=== PATIENT | male | born 1935 | race Caucasian/White ===

== ENCOUNTER 2020-07-07 17:25 | Inpatient (IN) | payer MEDICARE, OTHER ==
[2020-07-07] MEDS ORDERED: Furosemide 40 MG/4 ML VIAL ONE (18:03)
--- NOTE | 2020-07-07 18:39 | PDOC.HHP ---
Hospitalist HPI - History of Present Illness History of Present Illness: 84-year-old male complaining of shortness of breath over the past 2 to 3 weeks. He was seen at [facility] today where he left AMA earlier today after having a troponin that was 3 and an x-ray that I have reviewed myself that appears to have fluid overload and some congestion. Does not appear to be a coronavirus type x-ray but is consistent with fluid overload. He was sent to this hospital because his GFR is 17 and they cannot rule out PE at that hospital. His BNP was 3000 and his Trope was 3 at that time patient is a poor historian and history is mostly obtained from the chart LEFT AMA THIS AM. RETURNED AND DECIDED TO BE SEEN. LOVENOX GIVEN. ORIGINAL C/O SOB. AFEBRILE VSS 89RA, NOW ON 2L D-DIMER 0.77 TROP 2.922 CKMB 13.3 BUN 33, CREATININE 2.37 - UNABLE TO COMPLETE CTA BNP 3036 DENIES CHF. ED Course: VITAL SIGNS Sally Jul 07, 2020 17:30 MELANIE Garcia Daylee BP: 123/80, Pulse: 98, Resp: 28, Temp: 98.9 (Oral), O2 sat: 94 on (2L Oxygen), Time: 07/07/2020 17:30. VITAL SIGNS [facility] Jul 07, 2020 17:37 MELANIE Garcia Daylee Resp: 30, O2 sat: 98 on (3L Oxygen), Time: 07/07/2020 17:37. Sally Jul 07, 2020 18:34 Drug Name Dose Ordered Route Status Time furosemide injection 40 mg IV Push Given 18:07 07/07/2020 Hospitalist ROS - Review of Systems All other systems reviewed; all pertinent +/- noted in HPI/Subj - Medication Medications: Home medications: Allergies: NKDA Hospitalist History - Past Medical History Source: patient, RN notes reviewed Other Medical History: MEDICAL HISTORY [facility] Jul 07, 2020 17:31 MELANIE Garcia Daylee Notes: poor historian pt unable to tell me about his medical hx although he does take prescription meds. MALE SURGICAL HISTORY [facility] Jul 07, 2020 17:31 MELANIE Garcia Daylee Patient's surgical history not available at time of evaluation, poor historian. PSYCHIATRIC HISTORY [facility] Jul 07, 2020 17:31 MELANIE Garcia Daylee Psychiatric history includes, anxiety. SOCIAL HISTORY [facility] Jul 07, 2020 17:31 MELANIE Garcia, [place] Patient denies alcohol use, Patient denies drug use, Patient has no smoking history. FAMILY HISTORY:
[2020-07-07 19:06] LABS: CKMB 12.3 ng/mL (0-6.6)
[2020-07-07] MEDS ORDERED: Heparin 10,000 UNITS/ 10 ML VIAL SLOW IVP SCH ×2 (19:15→20:00)
[2020-07-07] MEDS ORDERED: Heparin 25,000 units/D5W 500 ML IVPB SCH ×2 (19:15→20:30)
[2020-07-07] MEDS ORDERED: hydrALAZINE 20 MG/ML VIAL SLOW IVP PRN ×2 (19:17→20:17)
[2020-07-07] MEDS ORDERED: Calcium Carbonate 500 MG ChewTAB PO PRN ×2 (19:17→20:18)
[2020-07-07] MEDS ORDERED: Ondansetron ODT 4 MG TAB PO PRN ×2 (19:17→20:13)
[2020-07-07] MEDS ORDERED: Acetaminophen 325 MG TAB PO PRN ×2 (19:17→20:17)
[2020-07-07] MEDS ORDERED: Acetaminophen 650 MG Suppository PR PRN ×2 (19:17→20:18)
[2020-07-07] MEDS ORDERED: Senokot S 8.6-50 MG TAB PO PRN ×2 (19:17→20:13)
[2020-07-07] MEDS ORDERED: Ondansetron PF 4 MG/2 ML Vial IVP PRN ×2 (19:17→20:13)
[2020-07-07] MEDS ORDERED: Nicotine 14 MG PATCH TD SCH (19:30)
[2020-07-07 19:43] LABS: Hemoglobin 12.8 g/dL (14.0-18.0); Platelet Count 137 thou/uL (130-400)
[2020-07-07 19:49] LABS: INR-International Normal Ratio 1.2; PTT 39.8 sec (22.9-36.1)
[2020-07-07] MEDS ORDERED: Aspirin 325 MG TAB PO SCH ×2 (20:00→20:30)
[2020-07-07] MEDS ORDERED: Benzonatate 100 MG CAP PO PRN (20:10)
[2020-07-07] MEDS ORDERED: Guaifenesin DM 100-10/5 ML UDCUP PO PRN (20:10)
[2020-07-07] MEDS ORDERED: Sodium Chloride 0.9% (PF) 10 ML VIAL FS PRN (20:23)
[2020-07-07 20:30] LABS: Troponin I 2.544 ng/mL (< 0.028)
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
[2020-07-07] MEDS ORDERED: Metoprolol Tartrate 25 MG TAB PO SCH (21:00)
[2020-07-07] MEDS ORDERED: Atorvastatin Calcium 40 MG TAB PO SCH (21:00)
[2020-07-07] MEDS: Metoprolol Tartrate 25 MG TAB PO SCH (21:57)
[2020-07-07] MEDS: Nicotine 14 MG PATCH TD SCH (21:57)
[2020-07-07] MEDS: Atorvastatin Calcium 40 MG TAB PO SCH (21:57)
[2020-07-07] MEDS ORDERED: Nitroglycerin 2% Ointment 1 INCH/1 GM Packet TOP SCH (22:00)
--- NOTE | 2020-07-07 22:16 | ULT ---
ULTRASOUND DOPPLER DUPLEX VENOUS BILATERAL LOWER EXTREMITIES: DATE: 07/07/2020 HISTORY: Bilateral lower extremity edema in 84-year-old male TECHNIQUE: Grayscale, color-flow, and spectral analysis, of major veins of bilateral lower extremities. FINDINGS: There is demonstration of blood flow with normal compressibility, of the bilateral common femoral, pr ofunda femoral, greater saphenous, femoral, popliteal, and posterior tibial, veins. IMPRESSION: Negative. No deep venous thrombosis of bilateral lower extremities.
--- NOTE | 2020-07-07 22:21 | ULT ---
ULTRASOUND RETROPERITONEUM COMPLETE: (RENAL) DATE: 07/07/2020 HISTORY: 84-year-old male with acute kidney injury FINDINGS: Right kidney: 7 x 3.5 x 4 cm. Left kidney: 8 x 4 x 3.5 cm. No hydronephrosis. 2.5 cm cyst at left renal lower pole. Urinary bladder volume 450 mL. Bilateral ureteral jets visualized. IMPRESSION: 1) bilateral renal atrophy. 2) left renal cyst. 3) urinary bladder distention
[2020-07-07] MEDS: Nitroglycerin 2% Ointment 1 INCH/1 GM Packet TOP SCH (22:24)
[2020-07-08] MEDS: Nitroglycerin 2% Ointment 1 INCH/1 GM Packet TOP SCH ×3 (04:40→20:53)
[2020-07-08 04:55] LABS: PTT 146.7 sec (22.9-36.1)
[2020-07-08] MEDS ORDERED: Furosemide 40 MG/4 ML VIAL SLOW IVP SCH (06:00)
[2020-07-08] MEDS: Furosemide 40 MG/4 ML VIAL SLOW IVP SCH ×2 (06:06→14:31)
[2020-07-08] MEDS: Pantoprazole 40 MG VIAL IVP SCH (08:23)
[2020-07-08] MEDS: Aspirin Chewable 81 MG TAB PO SCH (08:23)
[2020-07-08] MEDS: Metoprolol Tartrate 25 MG TAB PO SCH (08:23)
[2020-07-08 08:37] LABS: Albumin 3.8 g/dL (3.4-4.8); Anion Gap 17 mmol/L (10-20); BUN (Urea Nitrogen) 34 mg/dL (8.4-25.7); BUN/Creatinine Ratio 14.85; Calc. Creatinine Clearance 23 mL/min (70-130); Calcium 8.3 mg/dL (7.8-10.44); Carbon Dioxide 18 mmol/L (23-31); Chloride 109 mmol/L (98-107); Estimated GFR-MDRD 27; Glucose 95 mg/dL (83-110); Phosphorus 3.1 mg/dL (2.3-4.7); Potassium 3.5 mmol/L (3.5-5.1); Sodium 140 mmol/L (136-145)
[2020-07-08] MEDS ORDERED: Enoxaparin Sodium 40 MG/0.4 ML SYRINGE SC SCH (09:00)
[2020-07-08] MEDS ORDERED: Aspirin Chewable 81 MG TAB PO SCH (09:00)
[2020-07-08] MEDS: Enoxaparin Sodium 80 MG/0.8 ML SYRINGE SC SCH (09:27)
[2020-07-08] MEDS ORDERED: Potassium Chloride 20 MEQ TAB PO SCH (09:30)
[2020-07-08 11:09] LABS: Bacteria/HPF None Seen HPF (None Seen); RBC/HPF 21-50 HPF (0-3); Squamous Epithelial None Seen HPF (0-3); WBC/HPF None Seen HPF (0-3)
[2020-07-08 11:14] LABS: Bilirubin Negative (Negative); Blood, Urine Large (Negative); Glucose, Urine (Dipstick) Negative (Negative); Ketone, Urine Negative (Negative); Leukocyte Negative (Negative); Nitrite Negative (Negative); Protein, Urine (Dipstick) Negative (Neg-Trace); Specific Gravity, Urine 1.015 (1.005-1.030); Urobilinogen 0.2 mg/dL (Less than 2)
[2020-07-08 11:21] LABS: Clarity Hazy (Clear)
[2020-07-08 11:22] LABS: Urine Culture Reflex No No
[2020-07-08 11:24] VITALS: BMI 22.0
[2020-07-08 11:28] LABS: Creatinine, Urine 22.65 mg/dL (63-166)
[2020-07-08 12:42] LABS: SARS-CoV-2 MS2 Positive; SARS-CoV-2 N Gene Negative; SARS-CoV-2 S Gene Negative; SARS-CoV-2 by NAA Not Detected (NotDetected); SARS-CoV-2 orf1ab Negative
[2020-07-08] MEDS ORDERED: Sodium Bicarbonate Tab 325 MG TAB PO SCH (12:45)
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
--- NOTE | 2020-07-08 16:21 | PDOC.HOSPP ---
- Subjective Encounter Date: 07/08/20 Subjective: Patient says he is doing okay. Denies any pain or any current needs. - Objective Vital Signs & Weight: Vital Signs (12 hours) Temp Pulse Pulse Pulse Resp BP BP 07/08/20 15:35 97.6 F 81 16 07/08/20 12:00 07/08/20 11:41 98 119/73 07/08/20 11:07 98.0 F 97 18 07/08/20 10:11 87 79 92/55 L 104/59 L 07/08/20 08:30 07/08/20 08:19 97.5 F L 79 30 H 07/08/20 07:40 07/08/20 04:24 97.7 F 73 18 BP Pulse Ox Pulse Ox Pulse Ox 07/08/20 15:35 94/57 L 96 07/08/20 12:00 97 07/08/20 11:41 95 07/08/20 11:07 119/73 97 07/08/20 10:11 99 93 L 07/08/20 08:30 96 07/08/20 08:19 104/65 96 07/08/20 07:40 98 07/08/20 04:24 110/67 97 Weight Admit Weight 154 lb 15.759 oz Weight 153 lb 8 oz I&O: 07/07/20 07/08/20 07/09/20 06:59 06:59 06:59 Intake Total 680 Output Total 825 Balance -145 Result Diagrams: 07/07/20 19:29 07/08/20 08:07 Hospitalist ROS - Medication Medications: Active Medications Generic Name Dose Route Start Last Admin Trade Name Lg PRN Reason Stop Dose Admin Aspirin 81 mg 07/08/20 09:00 07/08/20 08:23 Aspirin Chewable PO 81 mg DAILY AMADO Administration Atorvastatin Calcium 40 mg 07/07/20 21:00 07/07/20 21:57 Lipitor PO 40 mg HS AMADO Administration Enoxaparin Sodium 70 mg 07/08/20 09:00 07/08/20 09:27 Lovenox SC 70 mg 0900 AMADO Administration Furosemide 40 mg 07/08/20 06:00 07/08/20 14:31 Lasix SLOW IVP 40 mg 0600,1400 AMADO Administration Nicotine 14 mg 07/07/20 21:00 07/07/20 21:57 Nicoderm Patch TD 14 mg 2099 AMADO Administration Nitroglycerin 0.5 inch 07/07/20 21:00 07/08/20 13:18 Nitro-Bid 2% Ointment TOP 0.5 inch 0500,1300,2100 AMADO Administration Pantoprazole Sodium 40 mg 07/08/20 09:00 07/08/20 08:23 Protonix IVP 40 mg DAILY AMADO Administration Pneumococcal 13-Valent Conj Vacc 0.5 ml 07/09/20 09:00 07/08/20 11:53 Prevnar IM 07/09/20 09:01 Not Given .ONCE ONE Sodium Chloride 10 ml 07/07/20 21:00 07/08/20 08:29 Flush - Normal Saline IVF 10 ml Q12HR AMADO Administration Sodium Chloride 10 ml 07/07/20 20:23 07/08/20 08:23 Normal Saline Pf FS 10 ml PRN PRN Administration RECONSTITUTION - Exam General Appearance: NAD, awake alert Heart: RRR, no murmur, no gallops, no rubs, normal peripheral pulses Respiratory: CTAB, no wheezes, no rales, no ronchi, normal chest expansion, no tachypnea, normal percussion Gastrointestinal: soft, non-tender, non-distended, normal bowel sounds, no palpable masses, no hepatomegaly, no splenomegaly, no bruit Extremities: no cyanosis, no clubbing, no edema Skin: normal turgor, no lesions, no rashes Neurological: cranial nerve grossly intact, normal sensation to touch, no weakness, no focal deficits, no new deficit Musculoskeletal: generalized weakness Psychiatric: normal affect, not oriented Hosp A/P (1) Acute on chronic systolic heart failure Code(s): I50.23 - ACUTE ON CHRONIC SYSTOLIC (CONGESTIVE) HEART FAILURE Status : Acute (2) Hypertension Code(s): I10 - ESSENTIAL (PRIMARY) HYPERTENSION Status: Acute (3) Hyperlipidemia Code(s): E78.5 - HYPERLIPIDEMIA, UNSPECIFIED Status: Acute (4) COPD (chronic obstructive pulmonary disease) Status: Acute (5) Myocardial infarction Code(s): I21.9 - ACUTE MYOCARDIAL INFARCTION, UNSPECIFIED Status: Acute Qualifiers: Myocardial infarction type: type 2 Qualified Code(s): I21.A1 - Myocardial infarction type 2 (6) Coronary artery disease Code(s): I25.10 - ATHSCL HEART DISEASE OF [place] CORONARY ARTERY W/O ANG PCTRS Status: Acute (7) Peripheral vascular disease Code(s): I73.9 - PERIPHERAL VASCULAR DISEASE, UNSPECIFIED Status: Acute (8) CKD (chronic kidney disease), stage IV Code(s): N18.4 - CHRONIC KIDNEY DISEASE, STAGE 4 (SEVERE) Status: Acute - Plan Acute on chronic systolic congestive heart failure: Patient certainly has evidence of decompensated heart failure however the systolic nature is based on the fact that he has a defibrillator likely representing a significantly reduced ejection fraction. He is currently receiving diuretics. No JEANIE inhibitor's due to the renal function. Cardiology consult appreciated. Discussed with Dr. Armijo. Attempting to get additional information via records. NSTEMI type II: Secondary to demand ischemia from decompensated heart failure. Exacerbated by his advanced age and renal function. Continue aspirin and statin therapy. He is not a candidate for cath at this point given his renal function. Kidney disease: Likely chronic stage IV renal disease. Patient's ultrasound of the kidneys show significant medical renal disease. Very likely that this is chronic in nature. It is possible there is a urinary retention component. Patient has had some relatively high volumes noted in the bladder on scan but he is able to void adequately with modest residuals. Nonsustained V. tach: Based on rhythm strip. Has a defibrillator in place. Hypothyroidism: Continue home dose of levothyroxine. Coronary artery disease: Working on obtaining more information regarding this history.
[2020-07-08] MEDS: Carvedilol 3.125 MG TAB PO SCH (17:37)
[2020-07-08] MEDS: Atorvastatin Calcium 40 MG TAB PO SCH (20:54)
[2020-07-08] MEDS: Nicotine 14 MG PATCH TD SCH (20:54)
[2020-07-08] MEDS: Sodium Bicarbonate Tab 325 MG TAB PO SCH (20:54)
[2020-07-08] MEDS ORDERED: Rosuvastatin 10 MG TAB PO SCH (21:00)
[2020-07-09 04:47] LABS: Anion Gap 15 mmol/L (10-20); BUN (Urea Nitrogen) 42 mg/dL (8.4-25.7); Calc. Creatinine Clearance 22 mL/min (70-130); Calcium 8.2 mg/dL (7.8-10.44); Carbon Dioxide 20 mmol/L (23-31); Cardiac Risk 3.8 (Less than 4.5); Chloride 108 mmol/L (98-107); Cholesterol 107 mg/dl (< 200 Desired); Estimated GFR-MDRD 26; Glucose 95 mg/dL (83-110); HDL Cholesterol 28 mg/dL (>60 Neg Risk); LDL Cholesterol, Calculated 52 mg/dL; Potassium 3.4 mmol/L (3.5-5.1); Sodium 140 mmol/L (136-145); Triglycerides 137 mg/dL (Less than 150)
[2020-07-09] MEDS: Furosemide 40 MG/4 ML VIAL SLOW IVP SCH (06:41)
[2020-07-09] MEDS: Nitroglycerin 2% Ointment 1 INCH/1 GM Packet TOP SCH ×3 (06:41→20:31)
[2020-07-09] MEDS: Aspirin Chewable 81 MG TAB PO SCH (08:37)
[2020-07-09] MEDS: Carvedilol 3.125 MG TAB PO SCH ×2 (08:37→17:18)
[2020-07-09] MEDS: Sodium Bicarbonate Tab 325 MG TAB PO SCH (08:37)
[2020-07-09] MEDS: Enoxaparin Sodium 80 MG/0.8 ML SYRINGE SC SCH (08:38)
[2020-07-09] MEDS: Pantoprazole 40 MG VIAL IVP SCH (08:38)
[2020-07-09] MEDS: Levothyroxine Sodium 50 MCG TAB PO SCH (08:41)
[2020-07-09] MEDS ORDERED: Prevnar 13-Val Conj/PF 0.5 ML SYRINGE IM ONE (09:00)
[2020-07-09] MEDS ORDERED: Spironolactone 25 MG TAB PO SCH (09:00)
--- NOTE | 2020-07-09 11:52 | PRG ---
DATE OF SERVICE: 07/09/2020 SERVICE: Nephrology. SUBJECTIVE: An 84-year-old male with known history of chronic CHF, cardiomyopathy status post AICD placement, presumed chronic kidney disease, admitted due to worsening shortness of breath especially with exertion. Nephrology is seeing the patient for renal insufficiency with possible acute kidney injury. The patient reports feeling better. Leg swelling on admission has resolved. No fever, nausea, vomiting, or chest pain. OBJECTIVE: VITAL SIGNS: Temperature 97.2, pulse 63, respiratory rate 17, SpO2 95% on room air, blood pressure is 119/65. I and O in the last 24 hours showed total intake of 1118 with output of 1775. GENERAL: Elderly male, in no obvious distress. Afebrile. Anicteric. Acyanotic. HEENT: Normocephalic, atraumatic. Oral mucosa is moist. NECK: Supple with no obvious JVD. CARDIOVASCULAR: Regular rhythm and rate with normal heart sounds 1 and 2. RESPIRATORY: Fair air entry bilaterally with no obvious crackle or rhonchi or use of accessory muscles. Few transmitted breath sounds is appreciated. GI: Full, soft, nontender, nondistended with normal bowel sounds. EXTREMITIES: Grossly normal looking, atraumatic with no edema or erythema. 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 The patient however is very hard of hearing even with his hearing aid. Cranial nerves 2 through 12 are grossly intact. DIAGNOSTIC DATA: Chemistry today showed sodium 140, potassium 3.4, chloride 108, CO2 of 20, BUN 42, creatinine 2.39, glucose 95, calcium 8.2. Urinalysis performed yesterday showed hazy urine with pH of 8.0, specific gravity of 1.015, negative protein, glucose, ketone, nitrite, bilirubin, and leukocyte esterase. Blood is large with microscopy showing 21-50 rbcs and no wbcs, squamous cells or bacteria. Urine electrolytes showed creatinine 22.65, sodium 125, urea nitrogen 157 with fractional excretion of 42. Urine total protein is 17 mg/dL. IMAGING: Echocardiogram performed yesterday showed significantly depressed systolic function with EF of 15% to 20%. ASSESSMENT: 1. Chronic kidney disease with possible reversible component. Creatinine has been stable since admission from 2.29 to 2.39. Baseline creatinine is unknown. Ultrasound showed atrophic kidneys. 2. History of a chronic congestive heart failure with automatic implantable cardioverter defibrillator placement is suggestive of possible chronic kidney disease in line with atrophic kidneys. Most likely etiology is that of cardiorenal or ischemia. The patient is currently euvolemic. There is no evidence of cardiac decompensation at this point. There is no edema or respiratory distress. The patient also is lying flat with no shortness and currently on room air. 3. Ischemic cardiomyopathy with ejection fraction of 15% to 20%, status post automatic implantable cardioverter defibrillator placement. 4. [id number] systolic heart failure: Markedly improved with diuretics. 5. Hypothyroidism, on supplementation. 6. Acute non-ST elevation myocardial infarction. PLAN: 1. We will hold Lasix therapy today as the patient is euvolemic and creatinine is trending up. 2. We will however start spironolactone in view of markedly depressed EF and hypokalemia. 3. We will also check magnesium level and replete that if indicated. 4. Further treatment to follow depending on hospital course. 5. Still awaiting medical records from barrel filler and primary care physician. Job ID: [id number]
--- NOTE | 2020-07-09 12:52 | PRG ---
DATE OF SERVICE: SUBJECTIVE: Mr. Diana appears comfortable now. The nurse said when his was not here, he became very confused, tried to pull his IVs out, refused medicines, but when she is here, he is much more compliant. He is not having trouble breathing. OBJECTIVE: VITAL SIGNS: Blood pressure is 98/63, pulse 70 and it is atrial paced. LUNGS: Clear. CARDIAC: Normal S1, normal S2. ABDOMEN: Soft, nontender. EXTREMITIES: There is no edema. We did receive the medication list from home. He was only taking enalapril 5 mg a day, Lasix 20 mg a day, levothyroxine. I suspect he is off the other medicines due to hypotension. ASSESSMENT: 1. Congestive heart failure, systolic, acute on chronic, improved. 2. Non-ST elevation infarction. 3. Stage 4 renal failure. 4. Defibrillator, end of life, elective replacement indicator. PLAN: 1. We will arrange to have the defibrillator changed. 2. Resume very low-dose JEANIE inhibitors in view of renal failure. 3. Hopefully home soon. He is becoming very disoriented here. Apparently, he has undergone cardiac catheterization. Medical therapy is advised, but we do not have all the details yet. We will reduce furosemide effect if Lasix is on hold presently. Job ID: [id number]
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
[2020-07-09 19:21] LABS: Hemoglobin 11.9 g/dL (14.0-18.0); Platelet Count 156 thou/uL (130-400)
[2020-07-09] MEDS: Atorvastatin Calcium 40 MG TAB PO SCH (20:31)
[2020-07-09] MEDS: Mirtazapine 30 MG TAB PO SCH (20:31)
[2020-07-09] MEDS: Temazepam 15 MG CAP PO SCH (20:31)
[2020-07-09] MEDS: Nicotine 14 MG PATCH TD SCH (20:32)
[2020-07-10 05:19] LABS: Anion Gap 15 mmol/L (10-20); BUN (Urea Nitrogen) 46 mg/dL (8.4-25.7); Calc. Creatinine Clearance 21 mL/min (70-130); Calcium 7.9 mg/dL (7.8-10.44); Carbon Dioxide 21 mmol/L (23-31); Chloride 103 mmol/L (98-107); Estimated GFR-MDRD 24; Glucose 113 mg/dL (83-110); Potassium 3.2 mmol/L (3.5-5.1); Sodium 136 mmol/L (136-145)
[2020-07-10] MEDS: Nitroglycerin 2% Ointment 1 INCH/1 GM Packet TOP SCH ×3 (05:36→21:20)
[2020-07-10] MEDS ORDERED: Potassium Chloride 20 MEQ TAB PO SCH (08:15)
[2020-07-10] MEDS: Carvedilol 3.125 MG TAB PO SCH ×2 (09:41→17:49)
[2020-07-10] MEDS: Aspirin Chewable 81 MG TAB PO SCH (09:41)
[2020-07-10] MEDS: Enoxaparin Sodium 80 MG/0.8 ML SYRINGE SC SCH (09:42)
[2020-07-10] MEDS: Levothyroxine Sodium 50 MCG TAB PO SCH (09:42)
[2020-07-10] MEDS ORDERED: Sodium Bicarbonate Tab 325 MG TAB PO SCH ×2 (13:15→21:00)
[2020-07-10] MEDS ORDERED: Spironolactone 25 MG TAB PO SCH (13:15)
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
[2020-07-10] MEDS: Temazepam 15 MG CAP PO SCH (21:21)
[2020-07-10] MEDS: Nicotine 14 MG PATCH TD SCH (21:21)
[2020-07-10] MEDS: Mirtazapine 30 MG TAB PO SCH (21:21)
[2020-07-10] MEDS: Atorvastatin Calcium 40 MG TAB PO SCH (21:21)
[2020-07-11] MEDS: Nitroglycerin 2% Ointment 1 INCH/1 GM Packet TOP SCH ×3 (05:37→20:57)
[2020-07-11 06:27] LABS: Anion Gap 14 mmol/L (10-20); BUN (Urea Nitrogen) 44 mg/dL (8.4-25.7); Calc. Creatinine Clearance 21 mL/min (70-130); Calcium 7.9 mg/dL (7.8-10.44); Carbon Dioxide 20 mmol/L (23-31); Chloride 107 mmol/L (98-107); Estimated GFR-MDRD 25; Glucose 97 mg/dL (83-110); Potassium 4.3 mmol/L (3.5-5.1); Sodium 137 mmol/L (136-145)
[2020-07-11] MEDS: Levothyroxine Sodium 50 MCG TAB PO SCH (08:28)
[2020-07-11] MEDS: Aspirin Chewable 81 MG TAB PO SCH (08:29)
[2020-07-11] MEDS: Carvedilol 3.125 MG TAB PO SCH ×2 (08:29→18:35)
--- NOTE | 2020-07-11 10:02 | PDOC.NEPPN ---
- Subjective Encounter Date: 07/11/20 Subjective: 84 y/o male admitted due to worsening SOB and leg edema. Seen in follow up for LIAM on CKD. Feeling better. No SOB. wants to go home. - Objective Vital Signs & Weight: Vital Signs (12 hours) Temp Pulse Resp BP Pulse Ox 07/11/20 07:46 96 07/11/20 04:29 95 07/11/20 04:00 98.3 F 88 18 102/59 L 93 L 07/11/20 00:00 104/58 L Weight Admit Weight 154 lb 15.759 oz Weight 155 lb 6.4 oz I&O: 07/10/20 07/11/20 07/12/20 06:59 06:59 06:59 Intake Total 660 480 Output Total 350 666 Balance 310 -186 Result Diagrams: 07/09/20 18:57 07/11/20 05:28 Nephrology ROS - Medication Medications: Active Medications Generic Name Dose Route Start Last Admin Trade Name Freq PRN Reason Stop Dose Admin Acetaminophen 650 mg 07/07/20 20:17 07/08/20 21:28 Tylenol PO 650 mg Q4H PRN Administration Headache/Fever/Mild Pain (1-3) Aspirin 81 mg 07/08/20 09:00 07/11/20 08:29 Aspirin Chewable PO 81 mg DAILY AMADO Administration Atorvastatin Calcium 40 mg 07/07/20 21:00 07/10/20 21:21 Lipitor PO 40 mg HS AMADO Administration Carvedilol 3.125 mg 07/08/20 17:00 07/11/20 08:29 Coreg PO 3.125 mg BID-WM AMADO Administration Levothyroxine Sodium 50 mcg 07/09/20 09:00 07/11/20 08:28 Synthroid PO 50 mcg DAILY AMADO Administration Mirtazapine 30 mg 07/09/20 21:00 07/10/20 21:21 Remeron PO 30 mg HS AMADO Administration Nicotine 14 mg 07/07/20 21:00 07/10/20 21:21 Nicoderm Patch TD 14 mg 2100 AMADO Administration Nitroglycerin 0.5 inch 07/07/20 21:00 07/11/20 05:37 Nitro-Bid 2% Ointment TOP Not Given 0500,1300,2100 AMADO Pantoprazole Sodium 40 mg 07/10/20 09:00 07/11/20 08:28 Protonix PO 40 mg DAILY AMADO Administration Sodium Chloride 10 ml 07/07/20 21:00 07/11/20 08:29 Flush - Normal Saline IVF 10 ml Q12HR AMADO Administration Sodium Chloride 10 ml 07/07/20 20:23 07/08/20 08:23 Normal Saline Pf FS 10 ml PRN PRN Administration RECONSTITUTION Temazepam 15 mg 07/09/20 21:00 07/10/20 21:21 Restoril PO 15 mg HS AMADO Administration - Exam General Appearance: awake alert Eye: anicteric sclera Neck: supple, symmetric, no JVD Respiratory: CTAB Cardiovascular: RRR, murmur present Gastrointestinal: soft, non-tender, non-distended, normal bowel sounds Extremities: no cyanosis, no clubbing, no edema Neurological: CN's grossly intact Neurological - other findings: ambulant. hard of hearing. PSYCH: normal affect, A&O x 3 Psychiatric - other findings: some memory lapses noted Nephrology Results - Labs Result Diagrams: 07/09/20 18:57 07/11/20 05:28 Lab results: Hgb 11.9 g/dL (14.0-18.0) L 07/09/20 18:57 Hct 36.4 % (42.0-52.0) L 07/09/20 18:57 Plt Count 156 thou/uL (130-400) 07/09/20 18:57 Sodium 137 mmol/L (136-145) 07/11/20 05:28 Potassium 4.3 mmol/L (3.5-5.1) 07/11/20 05:28 Chloride 107 mmol/L (98-107) 07/11/20 05:28 Carbon Dioxide 20 mmol/L (23-31) L 07/11/20 05:28 BUN 44 mg/dL (8.4-25.7) H 07/11/20 05:28 Creatinine 2.49 mg/dL (0.7-1.3) H 07/11/20 05:28 Glucose 97 mg/dL (83-110) 07/11/20 05:28 Calcium 7.9 mg/dL (7.8-10.44) 07/11/20 05:28 CK-MB (CK-2) 12.3 ng/mL (0-6.6) H* 07/07/20 18:04 Troponin I 2.544 ng/mL (< 0.028) H* 07/07/20 19:48 Albumin 3.8 g/dL (3.4-4.8) 07/08/20 08:07 Urine Ketones Negative mg/dL (Negative) 07/08/20 10:25 Urine Blood Large (Negative) A 07/08/20 10:25 Urine Nitrite Negative (Negative) 07/08/20 10:25 Ur Leukocyte Esterase Negative (Negative) 07/08/20 10:25 Urine RBC 21-50 HPF (0-3) A 07/08/20 10:25 Urine WBC None Seen HPF (0-3) 07/08/20 10:25 Ur Squamous Epith Cells None Seen HPF (0-3) 07/08/20 10:25 Urine Bacteria None Seen HPF (None Seen) 07/08/20 10:25 Nephrology AP PN - Plan ASSESSMENT: LIAM: Most likely related to hemodynamic factors related to Cardiac dysfynction and aggressive diuretic. creat is begining to trend down. Metabolic acidosis Hypokalemia. repleted Chronic kidney disease. Baseline creatinine is unknown. Ultrasound showed atrophic kidneys. Ischemic cardiomyopathy with ejection fraction of 15% to 20%, status post automatic implantable cardioverter defibrillator placement. Mcpab-zd-pcmmbqv systolic heart failure: Most likely due to non compliance and or AMI. Markedly improved with diuretics. Hypothyroidism, on supplementation. Acute non-ST elevation myocardial infarction. Acute respiratory failure with hypoxia. resolved. PLAN: Continue spironolactone and sodium bicarbonate Continue to hold lasix while in the hospital. Should however be restarted on discharge Avoid RAAS blockers for now as patient has low BP and stage 4 CKD with LIAM. May be a candidate for hydralazine/isosorbide should BP allow that Patient can be discharged from nephrology point of view. However close follow up with repeat lab in 1 week is recommended
--- NOTE | 2020-07-11 12:32 | PRG ---
DATE OF SERVICE: 07/10/2020 SERVICE: Nephrology. SUBJECTIVE: An 84-year-old male seen in followup for tjupd-du-cikcvcc renal insufficiency. He was admitted due to worsening shortness of breath and found to have dlpql-fs-hcgemqz systolic heart failure. The patient is clinically improved and off oxygen. Denied nausea, vomiting, or abdominal pain. OBJECTIVE: VITAL SIGNS: Temperature 97.8, pulse 77, respiratory rate 18, SpO2 of 96 on room air, and blood pressure is 101/68. I and O in the last 24 hours showed total intake of 660 with output of 350. This seems to be inconclusive. Weight, however, is down from 154 on admission to 151. GENERAL: Elderly male, in no distress. Afebrile. Anicteric. Acyanotic. HEENT: Normocephalic and atraumatic. Oral mucosa is moist. NECK: Supple with no obvious JVD. CARDIOVASCULAR: Regular rhythm and rate with occasional ectopics. Systolic murmur noted. RESPIRATORY: Good air entry bilaterally with no obvious crackle or rhonchi or use of accessory muscles. GI: Full, soft, nontender, and nondistended with normal bowel sounds. EXTREMITIES: Grossly normal looking and atraumatic with no obvious edema or erythema. BETTING CLERK: Conscious and alert and oriented x3 with appropriate mental status. Cranial nerves 2 through 12 are grossly intact. The patient is very hard of hearing. DIAGNOSTIC DATA: Chemistry today showed sodium 136, potassium 3.2, chloride 103, CO2 of 21, BUN 46, creatinine 2.52, glucose 113, and calcium 7.9. ASSESSMENT: 1. Chronic kidney disease, stage 4 with possible reversible component. Creatinine on presentation was 2.37, which went down to a darlyn of 2.29 before trending up to 2.52 today. Baseline creatinine is unknown. 2. Chronic kidney disease stage 4, as evidenced by atrophic kidneys, measuring about 7 to 8 cm. 3. Uvloh-ui-mjuudfg systolic heart failure with ejection fraction of 15 to 20. 4. Acute pdl-RS-zuaxewthl myocardial infarction. 5. Metabolic acidosis. 6. Hypokalemia. PLAN: 1. We will replete serum potassium with potassium chloride. 2. We will continue low-dose spironolactone for hyper-aldosterone state related to the chronic CHF. 3. We will also restart sodium bicarbonate therapy. 4. We will recheck renal function in the morning. 5. Avoid nephrotoxic agents including CHING malu in this patient with CKD stage 4. If blood pressure appreciates, the patient may be considered for hydralazine and isosorbide. 6. Further treatment for acute NSTEMI as per Cardiology. Hopefully, we will get medical record from [place] tomorrow. Further treatment to follow depending on hospital course. 7. Case discussed with primary attending. Job ID: [id number]
--- NOTE | 2020-07-11 14:14 | PDOC.HOSPP ---
- Subjective Encounter Date: 07/11/20 Subjective: Patient is doing well. He denies any complaints. - Objective Vital Signs & Weight: Vital Signs (12 hours) Temp Pulse Pulse Pulse Resp BP BP 07/11/20 12:00 97.2 F L 74 16 07/11/20 11:27 84 73 120/64 107/82 07/11/20 08:00 98.6 F 80 16 07/11/20 07:46 07/11/20 04:29 07/11/20 04:00 98.3 F 88 18 BP BP Pulse Ox Pulse Ox Pulse Ox 07/11/20 12:00 107/88 95 07/11/20 11:27 97 96 07/11/20 08:00 115/76 96 07/11/20 07:46 96 07/11/20 04:29 95 07/11/20 04:00 102/59 L 93 L Weight Admit Weight 154 lb 15.759 oz Weight 155 lb 6.4 oz I&O: 07/10/20 07/11/20 07/12/20 06:59 06:59 06:59 Intake Total 660 480 Output Total 350 666 Balance 310 -186 Result Diagrams: 07/09/20 18:57 07/11/20 05:28 Hospitalist ROS - Medication Medications: Active Medications Generic Name Dose Route Start Last Admin Trade Name Freq PRN Reason Stop Dose Admin Acetaminophen 650 mg 07/07/20 20:17 07/08/20 21:28 Tylenol PO 650 mg Q4H PRN Administration Headache/Fever/Mild Pain (1-3) Aspirin 81 mg 07/08/20 09:00 07/11/20 08:29 Aspirin Chewable PO 81 mg DAILY AAMDO Administration Atorvastatin Calcium 40 mg 07/07/20 21:00 07/10/20 21:21 Lipitor PO 40 mg HS AMADO Administration Carvedilol 3.125 mg 07/08/20 17:00 07/11/20 08:29 Coreg PO 3.125 mg BID-WM AMADO Administration Levothyroxine Sodium 50 mcg 07/09/20 09:00 07/11/20 08:28 Synthroid PO 50 mcg DAILY AMADO Administration Mirtazapine 30 mg 07/09/20 21:00 07/10/20 21:21 Remeron PO 30 mg HS AMADO Administration Nicotine 14 mg 07/07/20 21:00 07/10/20 21:21 Nicoderm Patch TD 14 mg 2099 AMADO Administration Nitroglycerin 0.5 inch 07/07/20 21:00 07/11/20 12:57 Nitro-Bid 2% Ointment TOP Not Given 0500,1300,2100 AMADO Pantoprazole Sodium 40 mg 07/10/20 09:00 07/11/20 08:28 Protonix PO 40 mg DAILY AMADO Administration Sodium Chloride 10 ml 07/07/20 21:00 07/11/20 08:29 Flush - Normal Saline IVF 10 ml Q12HR AMADO Administration Sodium Chloride 10 ml 07/07/20 20:23 07/08/20 08:23 Normal Saline Pf FS 10 ml PRN PRN Administration RECONSTITUTION Temazepam 15 mg 07/09/20 21:00 07/10/20 21:21 Restoril PO 15 mg HS AMADO Administration - Exam General Appearance: NAD, awake alert Heart: RRR, no murmur, no gallops, no rubs, normal peripheral pulses Respiratory: CTAB, no wheezes, no rales, no ronchi, normal chest expansion, no tachypnea, normal percussion Gastrointestinal: soft, non-tender, non-distended, normal bowel sounds, no palpable masses, no hepatomegaly, no splenomegaly, no bruit Extremities: no cyanosis, no clubbing, no edema Skin: normal turgor, no lesions, no rashes Musculoskeletal: normal tone Psychiatric: normal affect, not oriented Hosp A/P (1) Acute on chronic systolic heart failure Code(s): I50.23 - ACUTE ON CHRONIC SYSTOLIC (CONGESTIVE) HEART FAILURE Status : Acute (2) Hypertension Code(s): I10 - ESSENTIAL (PRIMARY) HYPERTENSION Status: Acute (3) Hyperlipidemia Code(s): E78.5 - HYPERLIPIDEMIA, UNSPECIFIED Status: Acute (4) COPD (chronic obstructive pulmonary disease) Status: Acute (5) Myocardial infarction Code(s): I21.9 - ACUTE MYOCARDIAL INFARCTION, UNSPECIFIED Status: Acute Qualifiers: Myocardial infarction type: type 2 Qualified Code(s): I21.A1 - Myocardial infarction type 2 (6) Coronary artery disease Code(s): I25.10 - ATHSCL HEART DISEASE OF [place] CORONARY ARTERY W/O ANG PCTRS Status: Acute (7) Peripheral vascular disease Code(s): I73.9 - PERIPHERAL VASCULAR DISEASE, UNSPECIFIED Status: Acute (8) CKD (chronic kidney disease), stage IV Code(s): N18.4 - CHRONIC KIDNEY DISEASE, STAGE 4 (SEVERE) Status: Acute - Plan Acute on chronic systolic congestive heart failure: Echo shows profoundly reduced ejection fraction at about 15%. Cardiology recommending low-dose JEANIE inhibitor's. Lasix being held as he appears more euvolemic. Nephrology starting Aldactone and recommending against JEANIE inhibitors at this time.. NSTEMI type II: Secondary to demand ischemia from decompensated heart failure. Exacerbated by his advanced age and renal function. Continue aspirin and statin therapy. He is not a candidate for cath at this point given his renal function. Appears to be stable for discharge from this perspective. Kidney disease: Likely chronic stage IV renal disease. Remains on diuretics. Otherwise patient is cleared by nephrology for discharge. Nonsustained V. tach: Nonsustained V. tach on rhythm strips. Patient's defibrillator is near end-of- life. Spoke with EP. Will attempt to get this replaced today or first thing in the morning. Hypothyroidism: Continue home dose of levothyroxine. Coronary artery disease: Little history on this. Patient reports that he has had a prior heart catheter. Disposition: Patient is stable for discharge once he has his defibrillator addressed.
--- NOTE | 2020-07-11 14:17 | PDOC.EVN ---
Event Note - Event Note Event Note: Spoke with the patient's son-in-law, Kadeem Ellington. Updated the family on the patient's situation. They had just been here visiting.
[2020-07-11] MEDS ORDERED: Clopidogrel Bisulfate 75 MG TAB ONE (18:40)
[2020-07-11] MEDS: Mirtazapine 30 MG TAB PO SCH (20:59)
[2020-07-11] MEDS: Nicotine 14 MG PATCH TD SCH (20:59)
[2020-07-11] MEDS: Atorvastatin Calcium 40 MG TAB PO SCH (20:59)
[2020-07-11] MEDS: Temazepam 15 MG CAP PO SCH (20:59)
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
[2020-07-12 04:35] LABS: #Basophils 0.1 thou/uL (0.0-0.2); #Eosinphils 0.2 thou/uL (0.0-0.7); #Lymphocytes 1.6 thou/uL (1.20-3.40); #Monocytes 0.9 thou/uL (0.11-0.59); #Neutrophils 3.5 thou/uL (1.40-6.50); %Basophils 1.1 % (0.0-1.0); %Eosinophils 2.8 % (0.0-10.0); %Lymphocytes 26.1 % (21.0-51.0); %Monocytes 14.4 % (0.0-10.0); %Neutrophils 55.6 % (42.0-75.0); Hemoglobin 12.1 g/dL (14.0-18.0); Mean Corpuscular HGB CONC 32.1 g/dL (32.0-36.0); Mean Corpuscular Volume 93.3 fL (78.0-98.0); Mean Platelet Volume 10.6 fL (7.4-10.4); Platelet Count 138 thou/uL (130-400); RBC Distribution Width 13.8 % (11.5-14.5); Red Blood Cell (RBC) Count 4.03 mill/uL (4.70-6.10); White Blood Cell (WBC) Count 6.2 thou/uL (4.8-10.8)
[2020-07-12 04:48] LABS: Anion Gap 11 mmol/L (10-20); BUN (Urea Nitrogen) 41 mg/dL (8.4-25.7); Calc. Creatinine Clearance 24 mL/min (70-130); Calcium 8.3 mg/dL (7.8-10.44); Carbon Dioxide 24 mmol/L (23-31); Chloride 107 mmol/L (98-107); Estimated GFR-MDRD 28; Glucose 103 mg/dL (83-110); Potassium 4.4 mmol/L (3.5-5.1); Sodium 138 mmol/L (136-145)
[2020-07-12] MEDS: Carvedilol 3.125 MG TAB PO SCH ×2 (05:56→18:04)
[2020-07-12] MEDS: Nitroglycerin 2% Ointment 1 INCH/1 GM Packet TOP SCH ×2 (08:34→13:24)
[2020-07-12] MEDS: Aspirin Chewable 81 MG TAB PO SCH (08:43)
[2020-07-12] MEDS: Levothyroxine Sodium 50 MCG TAB PO SCH (08:43)
--- NOTE | 2020-07-12 09:22 | PDOC.NEPPN ---
- Subjective Encounter Date: 07/12/20 Encounter Time: : Subjective: Seen in follow up for LIAM on CKD. No new problem. Awaiting AICD battery exchange. Denied SOB, othopnea, dizziness, cough or chest pain. - Objective Vital Signs & Weight: Vital Signs (12 hours) Temp Pulse Resp BP BP Pulse Ox 07/12/20 07:31 97.8 F 67 17 101/62 94 L 07/12/20 04:00 97.7 F 71 14 115/62 95 Weight Admit Weight 154 lb 15.759 oz Weight 150 lb 1.6 oz I&O: 07/11/20 07/12/20 07/13/20 06:59 06:59 06:59 Intake Total 480 Output Total 666 Balance -186 Result Diagrams: 07/12/20 04:16 07/12/20 04:16 Nephrology ROS - Medication Medications: Active Medications Generic Name Dose Route Start Last Admin Trade Name Freq PRN Reason Stop Dose Admin Acetaminophen 650 mg 07/07/20 20:17 07/08/20 21:28 Tylenol PO 650 mg Q4H PRN Administration Headache/Fever/Mild Pain (1-3) Aspirin 81 mg 07/08/20 09:00 07/12/20 08:43 Aspirin Chewable PO 81 mg DAILY AMADO Administration Atorvastatin Calcium 40 mg 07/07/20 21:00 07/11/20 20:59 Lipitor PO 40 mg HS AMADO Administration Carvedilol 3.125 mg 07/08/20 17:00 07/12/20 05:56 Coreg PO 3.125 mg BID-WM AMADO Administration Levothyroxine Sodium 50 mcg 07/09/20 09:00 07/12/20 08:43 Synthroid PO 50 mcg DAILY AMADO Administration Mirtazapine 30 mg 07/09/20 21:00 07/11/20 20:59 Remeron PO 30 mg HS AMADO Administration Nicotine 14 mg 07/07/20 21:00 07/11/20 20:59 Nicoderm Patch TD 14 mg 2100 AMADO Administration Nitroglycerin 0.5 inch 07/07/20 21:00 07/12/20 08:34 Nitro-Bid 2% Ointment TOP Not Given 0500,1300,2100 AMADO Pantoprazole Sodium 40 mg 07/10/20 09:00 07/12/20 08:43 Protonix PO 40 mg DAILY AMADO Administration Sodium Chloride 10 ml 09/10/20 21:00 07/12/20 08:43 Flush - Normal Saline IVF 10 ml Q12HR AMADO Administration Sodium Chloride 10 ml 07/07/20 20:23 07/08/20 08:23 Normal Saline Pf FS 10 ml PRN PRN Administration RECONSTITUTION Temazepam 15 mg 07/09/20 21:00 07/11/20 20:59 Restoril PO 15 mg HS AMADO Administration - Exam General Appearance: awake alert Eye: anicteric sclera ENT: normocephalic atraumatic, moist mucosa Neck: symmetric, no JVD Respiratory - other findings: fair entry bilaterally with some transmitted sound. No obvious crackles. Cardiovascular: RRR, murmur present Gastrointestinal: soft, non-tender, non-distended, normal bowel sounds Extremities: no cyanosis, no clubbing, no edema Neurological: CN's grossly intact, no focal deficits Neurological - other findings: hard of hearing PSYCH: A&O x 3 Psychiatric - other findings: Memory lapses noted Nephrology Results - Labs Result Diagrams: 07/12/20 04:16 07/12/20 04:16 Lab results: WBC 6.2 thou/uL (4.8-10.8) 07/12/20 04:16 Hgb 12.1 g/dL (14.0-18.0) L 07/12/20 04:16 Hct 37.6 % (42.0-52.0) L 07/12/20 04:16 MCV 93.3 fL (78.0-98.0) 07/12/20 04:16 Plt Count 138 thou/uL (130-400) 07/12/20 04:16 Neutrophils % 55.6 % (42.0-75.0) 07/12/20 04:16 Sodium 138 mmol/L (136-145) 07/12/20 04:16 Potassium 4.4 mmol/L (3.5-5.1) 07/12/20 04:16 Chloride 107 mmol/L (98-107) 07/12/20 04:16 Carbon Dioxide 24 mmol/L (23-31) 07/12/20 04:16 BUN 41 mg/dL (8.4-25.7) H 07/12/20 04:16 Creatinine 2.23 mg/dL (0.7-1.3) H 07/12/20 04:16 Glucose 103 mg/dL (83-110) 07/12/20 04:16 Calcium 8.3 mg/dL (7.8-10.44) 07/12/20 04:16 CK-MB (CK-2) 12.3 ng/mL (0-6.6) H* 07/07/20 18:04 Troponin I 2.544 ng/mL (< 0.028) H* 07/07/20 19:48 Albumin 3.8 g/dL (3.4-4.8) 07/08/20 08:07 Urine Ketones Negative mg/dL (Negative) 07/08/20 10:25 Urine Blood Large (Negative) A 07/08/20 10:25 Urine Nitrite Negative (Negative) 07/08/20 10:25 Ur Leukocyte Esterase Negative (Negative) 07/08/20 10:25 Urine RBC 21-50 HPF (0-3) A 07/08/20 10:25 Urine WBC None Seen HPF (0-3) 07/08/20 10:25 Ur Squamous Epith Cells None Seen HPF (0-3) 07/08/20 10:25 Urine Bacteria None Seen HPF (None Seen) 07/08/20 10:25 Nephrology AP PN - Plan ASSESSMENT: LIAM: Most likely related to hemodynamic factors related to Cardiac dysfunction and aggressive diuretic. creat continues to trend down with discontinuation of lasix Metabolic acidosis: Improving Hypokalemia. repleted Chronic kidney disease. Baseline creatinine is unknown. Ultrasound showed atrophic kidneys. Ischemic cardiomyopathy with ejection fraction of 15% to 20%, status post automatic implantable cardioverter defibrillator placement. Aawrq-al-omgpikh systolic heart failure: Most likely due to non compliance and or AMI. Markedly improved with diuretics. Hypothyroidism, on supplementation. Acute non-ST elevation myocardial infarction. Acute respiratory failure with hypoxia. resolved. PLAN: Continue spironolactone and sodium bicarbonate Continue to hold lasix while in the hospital. Restart lasix on discharge Avoid RAAS blockers for now Patient can be discharged from nephrology point of view. However close follow up with repeat lab in 1 week is recommended. Appointment made for jul 19 at 10 am. call for any clarification.
[2020-07-12] MEDS ORDERED: CEFAZOLIN 1 GM VIAL ONE (09:24)
[2020-07-12] MEDS ORDERED: Gentamicin 80 MG/2 ML VIAL ONE (09:24)
[2020-07-12] MEDS ORDERED: Lidocaine 1% (PF) 30 ML VIAL ONE (10:04)
[2020-07-12 11:44] VITALS: TEMP 97.4
[2020-07-12] MEDS ORDERED: Carvedilol 3.125 MG TAB PO SCH (17:00)
[2020-07-12 17:04] VITALS: BP 99/55
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
--- NOTE | 2020-07-13 07:27 | OP ---
DATE OF PROCEDURE: 07/12/2020 PROCEDURE PERFORMED: ICD generator change. PREOPERATIVE DIAGNOSIS: ICD at the elective replacement indicator time. PROCEDURE IN DETAIL: The patient came to the EP lab in the postabsorptive state. Informed consent was obtained. A time-out was called. The patient was not given any sedation. The left chest area was prepped and draped in usual sterile fashion. Lidocaine was injected subcutaneously along the existing scar. A 4 cm incision was made over the existing scar. The incision was carried down to the ICD pocket using combination of electrocautery and blunt dissection. The ICD was removed from the pocket. The leads were dissected free and inspected. They all appeared to be normal. The old ICD was disconnected and a new ICD, which is a [employer], model number [id number], serial number [id number] was reconnected to the ICD with care to ensure that the pins went all the way to the end of the pin block. The pocket was copiously irrigated with antibiotic solution and a TYRX pouch was used, lot number [id number]. The existing leads were tested, and the R-wave was greater than 20, the P-wave was 1.9 mV. The pacing impedance in the atrium was 665 ohms, in the ventricle was 646 ohms. Threshold in the atrium was 0.5 V at 0.4 milliseconds. Threshold in the ventricle was 0.75 V at 0.4 milliseconds. High voltage impedance was 48 and 58. The device was then programmed to AAI-DDD that is MVP mode with fast VT at 176 beats per minute, VF at 222. The device was placed in the pocket with care to ensure that the leads were underneath the device. This was of course after it was copiously irrigated with antibiotic solution. The pocket was then closed with combination of 2-0, 3-0, and 4-0 Vicryl followed by Dermabond for the skin. The patient tolerated the procedure well and was therefore discharged from the EP lab in a stable condition. COMPLICATIONS: None acute. ESTIMATED BLOOD LOSS: Less than 10 mL. POSTOPERATIVE DIAGNOSIS: ICD at the elective replacement indicator time. CONCLUSIONS: Successful ICD generator change. RECOMMENDATIONS: The patient will be discharged per his primary team and will follow up for wound check in 7 to 10 days. Job ID: [id number]
--- NOTE | 2020-07-13 10:26 | EKG ---
Test Reason : POST GENERATION C/OU Blood Pressure : / mmHG Vent. Rate : 067 BPM Atrial Rate : 067 BPM P-R Int : 184 ms QRS Dur : 118 ms QT Int : 408 ms P-R-T Axes : 054 -39 161 degrees QTc Int : 431 ms Normal sinus rhythm with sinus arrhythmia Demand pacemaker Left axis deviation Incomplete left bundle branch block Abnormal ECG Confirmed by MERLY MAYA M.D. ([id number] on 07/13/2020 10:26:25 AM Referred By: RIC Confirmed By:MERLY MAYA M.D.
== END 2020-07-12 19:52 | disposition home or self-care (01) | DRG 245 ==
LOC: ERS 17:25 → 2NO 18:30 → ERS 19:57 → 2NO 07-08 17:45
PROVIDERS: ADMIT Internal Medicine; ATTEND Internal Medicine
PROC: 0JH608Z Insertion of Defibrillator Generator into Chest Subcutaneous Tissue and Fascia, Open Approach (ICD-10-PCS; principal; 2020-07-12)
PROC: 0JPT0PZ Removal of Cardiac Rhythm Related Device from Trunk Subcutaneous Tissue and Fascia, Open Approach (ICD-10-PCS; 2020-07-12)
DX: I13.0 Hypertensive heart and chronic kidney disease with heart failure and stage 1 through stage 4 chronic kidney disease, or unspecified chronic kidney disease (principal); I50.23 Acute on chronic systolic (congestive) heart failure; I21.A1 Myocardial infarction type 2; J96.01 Acute respiratory failure with hypoxia; I47.2 Ventricular tachycardia; N18.4 Chronic kidney disease, stage 4 (severe); N17.9 Acute kidney failure, unspecified; E87.2 Acidosis; Z20.828 Contact with and (suspected) exposure to other viral communicable diseases; E78.5 Hyperlipidemia, unspecified; J44.9 Chronic obstructive pulmonary disease, unspecified; I25.10 Atherosclerotic heart disease of native coronary artery without angina pectoris; F03.90 Unspecified dementia, unspecified severity, without behavioral disturbance, psychotic disturbance, mood disturbance, and anxiety; F41.9 Anxiety disorder, unspecified; E03.9 Hypothyroidism, unspecified; I73.9 Peripheral vascular disease, unspecified; I25.5 Ischemic cardiomyopathy; F17.210 Nicotine dependence, cigarettes, uncomplicated; E87.6 Hypokalemia; Z79.899 Other long term (current) drug therapy; Z99.81 Dependence on supplemental oxygen; Z90.49 Acquired absence of other specified parts of digestive tract; Z79.890 Hormone replacement therapy
CPT/HCPCS: 33263; 36415; 76770; 80048; 80061; 80069; 81001; 82553; 82570; 83735; 84156; 84300; 84443; 84540; 85014; 85018; 85025; 85049; 85610; 85730; 87635; 93005; 93010; 93306; 93798; 93970; 94760; 96374; C1721; C9113; J0690; J1580; J1644; J1650; J1940; J2001; U0003